=== PATIENT | male | born 1985 | race Caucasian/White ===

== ENCOUNTER 2021-08-29 20:20 | Emergency (ER) | payer OTHER ==
[2021-08-29] MEDS ORDERED: oxyCODONE 5 MG TABLET PO STA (20:36)
[2021-08-29] MEDS ORDERED: LIDOCAINE-EPINEPH-TETRACAINE 3 ML SYRINGE TOP STA (20:36)
[2021-08-29] MEDS ORDERED: LIDOCAINE 1%-EPI 1:100000 20 ML MDV SUBQ STA (20:42)
[2021-08-29] MEDS ORDERED: ONDANSETRON ODT 4 MG TABLET TL STA (22:00)
[2021-08-29] MEDS ORDERED: HYDROmorphone 1 MG/ML CARPUJECT IM STA (22:00)
[2021-08-29] MEDS ORDERED: oxyCODONE/ACET 5/325 Prepack 4 PO STA (22:22)
--- NOTE | 2021-08-29 22:25 | ED Physician Documentation ---
History of Present Illness - Stated complaint Stated Complaint: CYST ON TAILBONE - Chief complaint Chief Complaint: General - History obtained from History obtained from: Patient - Additonal information Additional information: Patient is a 35-year-old male with no significant past medical history prese nting for evaluation of cyst and pain to his tailbone area that he noticed today. He initially felt discomfort this morning And it has worsened through the day. He feels increased swelling and pressure to the site. The pain is sharp. He denies fever, chest pain, difficulty breathing, abdominal pain, vomiting, diarrhea. He is never had an abscess in this region in the past. Review of Systems Constitutional: denies: Fever Nose: denies: Congestion Cardiac: denies: Chest pain / pressure Respiratory: denies: Dyspnea GI: denies: Abdominal Pain, Vomiting, Diarrhea : denies: Dysuria, Unable to Void Skin: reports: Other (Abscess) Musculoskeletal: denies: Back pain Neurologic: denies: Headache PD PAST MEDICAL HISTORY - Present Medications Home Medications: Ambulatory Orders Medication Instructions Recorded Confirmed Oxycodone HCl/Acetaminophen 1 each PO Q6H PRN #10 tablet 08/29/21 [Percocet 5-325 mg Tablet] - Allergies Allergies/Adverse Reactions: Allergies Allergy/AdvReac Type Severity Reaction Status Date / Time No Known Drug Allergies Allergy Verified 08/29/21 20:25 PD ED PE NORMAL - General General: Alert and oriented X 3, No acute distress, Well developed/nourished - HEENT HEENT: Atraumatic, Moist mucous membranes - Neck Neck: Supple, no meningeal sign - Cardiac Cardiac: RRR, No murmur, Strong equal pulses - Respiratory Respiratory: No respiratory distress, Clear bilaterally - Abdomen Abdomen: Normal bowel sounds, Soft, Non tender - Male Male : [place] Hand present (CONOR [place]), Other (Swelling, tenderness, fluctuance to superior gluteal cleft consistent with pilonidal abscess no overlying eryth gisselle) PD ED PE EXPANDED - Visual Whole body visual: 1 - abscess Results - Vitals Vitals: Vital Signs - 24 hr 08/29/21 08/29/21 20:25 22:42 Temperature 36.5 C 36.5 C Heart Rate 100 88 Respiratory 16 16 Rate Blood Pressure 114/75 116/76 O2 Saturation 97 98 Oxygen O2 Source Room air Procedures - Abscess I&D (location) Buttocks Preparation: Confirmed with ultrasound, Betadine, Lidocaine 1%, With epi, LET Incision: Incised with scalpel, Purulent drainage, Loculations broken Other: Pt tolerated well, Dressing applied PD MEDICAL DECISION MAKING - ED course ED course: Patient presenting for swelling and tenderness to tailbone area, found to have pilonidal abscess. Abscess incised and drained at the bedside After ultrasound evaluation. No overlying erythema To suggest cellulitis. No systemic symptoms and vital signs are stable.Patient counseled on management as well as need for follow-up. He is advised on return precautions. Departure - Departure Disposition: 01 Home, Self Care Clinical Impression: Pilonidal abscess Condition: Stable Instructions: ED Cyst Pilonidal Infected IandD Follow-Up: Walt Martino MD [Provider Admit Priv/Credential] - Prescriptions: Oxycodone HCl/Acetaminophen [Percocet 5-325 mg Tablet] 1 each PO Q6H PRN #10 tablet PRN Reason: pain Comments: You were evaluated for an abscess to your tailbone area. It appears to be an infected pilonidal cyst. We did incise and drain the infection. At this time I do not believe you need antibiotics as the abscess was able to be opened with significant purulent drainage. I would recommend following up with A general surgeon as you may need the cyst removed at a later point. If you have any worsening symptoms such as increased pain, swelling, fever or any concerns please return to the emergency department. I have sent a prescription for pain medication to [facility] in [place]. I am prescribing a short course of narcotic pain medication for you. These are potentially dangerous and addictive medications that should be used carefully. These medications may constipate you. Take an gkui-lte-aslrfcv stool softener (docusate) twice daily with plenty of water while taking these medications. If you go 24 hours without a bowel movement, take tttm-qwm-nidbnwg miralax, per package instructions. Do not drink or drive while taking these medications. If you received narcotic or sedating medications while in the emergency department, do not drive for 24 hours. Store this medication in a safe, secure place and out of reach of children. It is a violation of federal law to give or sell this medication to another person or to use in a manner other than prescribed. The ED will not refill narcotic prescriptions, including prescriptions lost or stolen. To dispose of unwanted medications: 1. [facility] [address] in [place] has a medication drop box. They accept prescription medications (in pill form) Wednesday through Wednesday 9:00 a.m. to 5:00 p.m. 2. [facility] [employer] accepts prescription medications (in pill form only) for disposal year round. Call for more information. 3. Contact the [facility] for the next [facility] sponsored prescription drug collection event. , [phone], or [phone]; Note that many narcotic pain relievers also contain Tylenol/acetaminophen. Please ensure that your total dose of acetaminophen from all sources does not exceed 3 g (3000 mg) per day. Discharge Date/Time: 08/29/21 22:42
[2021-08-29 22:44] VITALS: BP 116/76
== END 2021-08-29 22:42 | disposition home or self-care (01) ==
LOC: ED 20:20
DX: L05.01 Pilonidal cyst with abscess (principal)
CPT/HCPCS: 10080; 96372; 99283; A9270; J1170; Q0162

== ENCOUNTER 2021-10-17 21:07 | Emergency (ER) | payer OTHER ==
[2021-10-17] MEDS ORDERED: HYDROcod/ACETAM 5/325 MG TABLET PO STA (21:35)
[2021-10-17] MEDS ORDERED: IBUPROFEN 600 MG TABLET PO STA (21:35)
[2021-10-17] MEDS ORDERED: SULFAMETH/TRIMETH DS 800/160 MG TABLET PO STA (21:35)
--- NOTE | 2021-10-17 21:39 | ED Physician Documentation ---
PD HPI SKIN - Stated complaint Stated Complaint: CYST ON TAILBONE - Chief complaint Chief Complaint: Wound - History obtained from History obtained from: Patient - History of Present Illness Timing - onset: How many weeks ago (Patient initially seen a few weeks ago with pain and swelling in fluctuance in the pilonidal area with incision and drainage. He states it never completely stopped draining of purulent material and now has increased redness and swelling and pain the last few days.) Timing - duration: Weeks Timing - details: Gradual onset, Still present, Waxing and waning Location: Other (coccygeal area) Quality / character: Painful, Discolored (red), Swelling, Draining Associated symptoms: No: Fever, N/V/D Similar symptoms before: Diagnosis (pilonidal cyst/abscess first onset 3 weeks ago and has not resolved fully.) Recently seen: Emergency Dept Review of Systems Constitutional: denies: Fever, Chills, Myalgias Neurologic: denies: Generalized weakness, Focal weakness, Numbness PD PAST MEDICAL HISTORY - Past Medical History Cardiovascular: None Endocrine/Autoimmune: None - Present Medications Home Medications: Ambulatory Orders Medication Instructions Recorded Confirmed Oxycodone HCl/Acetaminophen 1 each PO Q6H PRN #10 tablet 08/29/21 [Percocet 5-325 mg Tablet] HYDROcod/ACETAM 5/325 [Jones 5/325] 1 ea PO Q6H PRN #12 tablet 10/17/21 Sulfamethox/Trimeth 800/160 1 each PO BID #14 tablet 10/17/21 [Bactrim Ds 800/160] - Allergies Allergies/Adverse Reactions: Allergies Allergy/AdvReac Type Severity Reaction Status Date / Time No Known Drug Allergies Allergy Verified 10/17/21 21:17 PD ED PE NORMAL - Vitals Vital signs reviewed: Yes - General General: Alert and oriented X 3, Well developed/nourished - Abdomen Abdomen: Soft, Non tender - Derm Derm: Normal color, Warm and dry, Other (Lower coccygeal skin area showing redness swelling and tenderness with small open sore in the pilonidal area. There is minimal discharge. Bedside ultrasound showed no collected fluid but inflammation in the subcutaneous tissue.) - Neuro Neuro: Alert and oriented X 3, No motor deficit, Normal speech Results - Vitals Vitals: Vital Signs - 24 hr 10/17/21 10/17/21 21:12 21:46 Temperature 36.5 C 36.6 C Heart Rate 87 88 Respiratory 18 18 Rate Blood Pressure 127/74 123/66 O2 Saturation 97 99 Oxygen O2 Source Room air PD MEDICAL DECISION MAKING - ED course Complexity details: considered differential (bedside U/S showed no collected fluid, so is draining reasonably. Will give abx for infection. Refer to Surgery. ), d/w patient ED course: I talked with the patient that the initial goal is to clear the infection. Subsequently following up with surgery for potential excision given the prolonged duration of the infection and some scar tissue in the area, that it would be prone to reinfection. Departure - Departure Disposition: Home, Self Care Clinical Impression: Infected pilonidal cyst Condition: Stable Record reviewed to determine appropriate education?: Yes Instructions: ED Cyst Pilonidal Infec Abx Only Follow-Up: Yoan Larsen MD [Provider Admit Priv/Credential] - Surgical Care [Provider Group] Prescriptions: Sulfamethox/Trimeth 800/160 [Bactrim Ds 800/160] 1 each PO BID #14 tablet HYDROcod/ACETAM 5/325 [Jones 5/325] 1 ea PO Q6H PRN #12 tablet PRN Reason: Pain Comments: Warm moist compresses or soaks to the area to promote drainage and prove blood flow to help fight the infection. Bactrim DS antibiotic twice daily for the next week. Use some ibuprofen or naproxen 2 to 3 tablets twice daily for inflammation and pain. To that add Tylenol every 4-6 hours if needed for pain or hydrocodone for worse pain. Call one of the surgical offices Wednesday for follow-up. I provided the numbers for 2 surgical offices in [facility]. I transmitted prescriptions to [facility] in [place]. I am prescribing a short course of narcotic pain medication for you. These are potentially dangerous and addictive medications that should be used carefully. These medications may constipate you. Take an lsgo-ice-wfiqjbh stool softener such as docusate twice daily with plenty of water while taking these medications. If you go 24 hours without a bowel movement, take uefi-hqe-ieafuju MiraLAX, per package instructions. Do not drink or drive while taking these medications. If you received narcotic or sedating medications while in the emergency department do not drive for 24 hours. Store this medication in a safe, secure place and out of reach of children. It is a violation of federal law to give or sell this medication to another person or to use in a manner other than prescribed. The ED will not refill narcotic prescriptions, including prescriptions lost or stolen. You can dispose of unwanted medications at [facility] or at several pharmacies such as [facility]. Discharge Date/Time: 10/17/21 21:46
[2021-10-17 21:47] VITALS: BP 123/66
== END 2021-10-17 21:46 | disposition home or self-care (01) ==
LOC: ED 21:07
DX: L05.01 Pilonidal cyst with abscess (principal)
CPT/HCPCS: 99282; 99283; A9270